=== PATIENT | female | born 1950 | race Asian ===

== ENCOUNTER → 2016-12-05 | Outpatient (CLI) | payer OTHER | END | disposition home or self-care (01) | LOC: EMPHLTH 12:10 | PROVIDERS: ATTEND Internal Medicine | DX: R76.11 Nonspecific reaction to tuberculin skin test without active tuberculosis (principal) ==

== ENCOUNTER → 2019-09-30 | Outpatient (CLI) | payer MEDICARE, OTHER | END | disposition home or self-care (01) | LOC: RADPV 08:04 | PROVIDERS: ATTEND Legal Medicine | DX: I70.0 Atherosclerosis of aorta (principal); R06.00 Dyspnea, unspecified | CPT/HCPCS: 71046; 71046-TC ==

== ENCOUNTER → 2020-09-17 | Outpatient (CLI) | payer MEDICARE, OTHER | END | disposition home or self-care (01) | LOC: RADPV 08:59 | PROVIDERS: ATTEND Legal Medicine | DX: M19.011 Primary osteoarthritis, right shoulder (principal) | CPT/HCPCS: 73030-TC ==